=== PATIENT | male | born 1985 | race Hispanic/Latino ===

== ENCOUNTER 2021-05-31 07:05 | Emergency (ER) | payer OTHER ==
[~2021-05-31] VITALS: Ht 182.9 cm; Wt 163.3 kg
[2021-05-31] MEDS ORDERED: NAPR-1180 PO (10:07)
[2021-05-31 10:10] VITALS: BP 128/74
== END 2021-05-31 10:18 | disposition home or self-care (01) ==
LOC: EDH 07:05
DX: M25.512 Pain in left shoulder (principal); M79.10 Myalgia, unspecified site; Z88.6 Allergy status to analgesic agent
CPT/HCPCS: 73030